=== PATIENT | male | born 1945 | race Caucasian/White ===

== ENCOUNTER → 2017-03-17 | Outpatient (CLI) | payer BC ==
[~2017-03-17] MED LIST: REGADENOSON 0.4 MG/5 ML DISP.SYRIN. IV ONE
--- NOTE | 2017-03-17 11:47 | PCVCIMAG ---
APPROVED REPORT Exam: Nuclear Stress Test Indication: Chest pain, Cardiomyopathy, EF40-45%, LBBB Patient Location: Out-Patient Stress Nurse: Griselda Tinoco RN, Dora Cui RN AL Tech:Saeid Schmitz NMTCB Ht: 5 ft 8 in Wt: 200 lbs BSA: 2.04 m2 HR: 66 bpm BP: 154/82 mmHg BMI: 30.4 Rhythm: SR, LBBB Medical History Medical History: Age, Hyperlipdiemia, HTN Medications: ASA, Atorvastatin, Benazepril, Clonazepam Allergies: NKDA Pretest Chest Pain Characteristics: No chest pain Exercise History: Physically active Stress Test Details Stress Test: Pharmacologic stress was paired with low level exercise. Reason for pharmacologic stress test: LBBB. HR Resting HR: 66 bpmMax Heart Rate (APMHR): 149 bpm Max HR Achieved: 113 bpmTarget HR (85% APMHR): 126 bpm % of APMHR: 75 Recovery HR: 81 bpm BP Resting BP: 154/82 mmHg Max BP: 190/89 mmHg ECG Resting ECG: Sinus Rhythm, LBBB Stress ECG: Sinus Tachycardia, LBBB ST Change: Nondiagnostic LBBB Recovery ECG: Sinus Rhythm, LBBB Clinical Reason for Termination: Completed protocol Stress Symptoms: Dyspnea Exercise duration: 4 min 00 sec Exercise capacity: 1.6 METs Symptoms resolved over time NM EXAM: Myocardial Perfusion REST/STRESS Imaging Protocol: Rest Tc-99m/Stress Tc-99m 1 day Resting Data Rest SPECT myocardial perfusion imaging was performed in supine position 45 minutes following the intravenous injection of 12 mCi of Tc-99m Sestamibi. Time of rest injection: 0845 Date: 03/17/2017 Administration Route: IV Administration Site: Right AC Pharmacologic Stress Pharmacologic stress test was performed by injecting Regadenoson 0.4 mg IV push followed by the intravenous injection of 34.2 mCi of Tc-99m Sestamibi. Time of stress injection: 1020 Date: 03/17/2017 Administration Route: IV Administration Site: Right AC Gated Stress SPECT was performed 45 minutes after stress injection. The images were gated to evaluate regional wall motion and calculate left ventricular ejection fraction. Study Quality Study: Good Study Data Post stress, the left ventricular ejection was 43%.. SSS: 4 SRS: 3 SDS: 1 TID = 1.18. Perfusion There is a medium area of moderately reduced uptake in the apical segment of the anterior wall which is seen on the stress images and improves on the resting images. This area is hypokinetic and is most consistent with ischemia. Wall Motion Moderately decreased left ventricular systolic function. Nuclear Conclusion ECG Findings: non-diagnostic Clinical Findings: non-diagnostic Nuclear Findings: positive for ischemia There is an incomplete infarct in the distal anteroapical segment with jayme-infarct ischemia. There is moderate LV dysfunction.
== END | disposition home or self-care (01) ==
LOC: PCVCIMAG 08:13
PROVIDERS: ATTEND Internal Medicine Cardiovascular Disease
DX: I10 Essential (primary) hypertension (principal); I44.7 Left bundle-branch block, unspecified; R07.9 Chest pain, unspecified; I42.9 Cardiomyopathy, unspecified; E78.5 Hyperlipidemia, unspecified; R60.9 Edema, unspecified; Z79.82 Long term (current) use of aspirin; Z79.899 Other long term (current) drug therapy
CPT/HCPCS: 78452; 93005; 93017; A9500; G0463; J2785; 80061

== ENCOUNTER → 2018-05-05 | Outpatient (CLI) | payer BC, OTHER ==
--- NOTE | 2018-05-05 09:51 | PCVCIMAG ---
APPROVED REPORT Study performed: 05/05/2018 08:27:53 EXAM: Comprehensive 2D, Doppler, and color-flow Echocardiogram Patient Location: Echo lab Status: routine BSA: 2.07 HR: 64 bpmBP: 136/80 mmHg Rhythm: LBBB Other Information Study Quality: Adequate Risk Factors: Cardiac Risk Factors: HTN, Hyperlipidemia Indications Cardiomyopathy LBBB 2D Dimensions IVSd: 11.53 (7-11mm)LVOT Diam: 21.97 (18-24mm) LVDd: 51.00 mm PWd: 11.53 (7-11mm)Ascending Ao: 33.48 (22-36mm) LVDs: 41.23 (25-40mm) Left Atrium: 47.57 (27-40mm) Aortic Root: 35.13 mm LV Single Plane 4CH: 33.72 % LV Single Plane 2CH: 38.70 % Biplane EF: 36.4 % Volumes Left Atrial Volume (Systole) Single Plane 4CH: 96.78 mLSingle Plane 2CH: 91.71 mL LA ESV Index: 46.00 mL/m2 Aortic Valve AoV Peak Cedric.: 1.43 m/s AO Peak Gr.: 8.22 mmHgLVOT Max P.90 mmHg LVOT Max V: 0.69 m/s BC Vmax: 1.82 cm2 Mitral Valve E/A Ratio: 0.9 MV Decel. Time: 257.82 ms MV E Max Cedric.: 0.46 m/s MV A Cedric.: 0.54 m/s IVRT: 179.93 ms Pulmonary Valve PV Peak Cedric.: 0.94 m/sPV Peak Gr.: 3.53 mmHg Pulmonary Vein P Vein S: 0.41 m/sP Vein A: 0.34 m/s P Vein D: 0.50 m/sP Vein A Dur.: 124.6 msec P Vein S/D Ratio: 0.82 Tricuspid Valve TR Peak Cedric.: 2.25 m/s TR Peak Gr.: 20.16 mmHg TV Vmax: 0.40 m/s Left Ventricle The left ventricle is normal size. Paradoxical septal motion consistent with conduction abnormality. Mild concentric left ventricular hypertrophy. Left ventricular systolic function is moderately decreased. LVEF is 35-40%. Grade I - abnormal relaxation pattern. Right Ventricle The right ventricle is normal size. The right ventricular systolic function is normal. Atria The left atrium size is moderately dilated. Right atrium is moderately dilated. Aortic Valve Mild aortic valve sclerosis. No aortic regurgitation is present. There is no aortic valvular stenosis. Mitral Valve The mitral valve is normal in structure. Mild mitral regurgitation. No evidence of mitral valve stenosis. Tricuspid Valve The tricuspid valve is normal in structure. Trace tricuspid regurgitation with PAP of 27 mmHg. Pulmonic Valve The pulmonary valve is normal in structure. Trace pulmonic regurgitation. Great Vessels The aortic root is normal in size. IVC is normal in size and collapses >50% with inspiration. Pericardium There is no pericardial effusion. There is no pleural effusion. <Conclusion> The left ventricle is normal size. Mild concentric left ventricular hypertrophy. Left ventricular systolic function is moderately decreased. Paradoxical septal motion consistent with conduction abnormality. LVEF is 35-40%. Grade I - abnormal relaxation pattern. The right ventricle is normal size. The left atrium size is moderately dilated. Right atrium is moderately dilated. Mild aortic valve sclerosis. Mild mitral regurgitation. Trace tricuspid regurgitation with PAP of 27 mmHg.
== END | disposition home or self-care (01) ==
LOC: PCVCIMAG 08:45
PROVIDERS: ATTEND Internal Medicine Cardiovascular Disease
DX: I08.0 Rheumatic disorders of both mitral and aortic valves (principal); I42.9 Cardiomyopathy, unspecified; I44.7 Left bundle-branch block, unspecified; I10 Essential (primary) hypertension; R07.9 Chest pain, unspecified
CPT/HCPCS: 93306